=== PATIENT | female | born 1945 | race Caucasian/White ===

== ENCOUNTER 2022-07-11 04:31 | Inpatient (IN) | payer MEDICARE, SELFPAY ==
[2022-07-11] VITALS (14 sets, daily range): BP systolic 114–135; BP diastolic 57–77; PULSE 67–89; RESP 12–22; TEMP 36.1–36.7; O2SAT 92–100; BMI 40.7
--- NOTE | ~2022-07-11 | XR_ITS ---
EXAMINATION: XR retrograde pyelo w/stent RT DATE: 07/11/2022 14:40 INDICATION: Proximal right ureteral stone TECHNIQUE: 6 fluoroscopic images of the abdomen and pelvis were obtained during procedure performed b simeon Christopher. Radiologist was not present for the imaging or procedure. The amount of fluoroscopy t deonte used during this procedure was 0.3 minutes. COMPARISON: 07/11/2022 FINDINGS: Steam Hand images demonstrate a large heterotopic ossicle in the right lower quadrant more later al than would be expected in position for the right ureter. Cholecystectomy clips in right upper quad rant. Multiple additional surgical clips in the pelvis. Partially visualized left total hip arthropla sty. Lumbar dextrocurvature with severe spondylosis. Subsequent images demonstrate cannulation and re trograde contrast injection into the right ureter and renal collecting system. Lucent filling defect on the initial image at the right ureteropelvic junction which is not seen on the subsequent images w hich could represent either a gas bubble or renal stone subsequently either extracted or reflux into the renal pelvis/collecting system. A wire was then advanced into the right renal pelvis for placemen t of a right internal ureteral stent with loops formed in the right renal pelvis. IMPRESSION: 1. Lucent filling represent a stone or gas bubbles at the right ureteropelvic junction on the initial pyelographic image which is not appreciated on subsequent images. Correlate with operative note for further detail. 2. Right internal ureteral stent placement with proximal loop formed in the right renal pelvis. Reviewed, dictated and finalized at location B. D CARE LEAD TEACHER IMPRESSION: 1. Lucent filling represent a stone or gas bubbles at the right ureteropelvic j unction on the initial pyelographic image which is not appreciated on subsequen t images. Correlate with operative note for further detail. 2. Right internal ureteral stent placement with proximal loop formed in the rig ht renal pelvis.
--- NOTE | ~2022-07-11 | XR_ITS ---
EXAMINATION: XR abdomen/kub 1V DATE: 07/11/2022 10:29 INDICATION: Right proximal ureteral stone. TECHNIQUE: A supine view of the abdomen on 2 radiographs was obtained. COMPARISON: None. FINDINGS: There are no dilated loops of bowel. There are surgical clips in the abdomen and pelvis. Th ere is a total left hip arthroplasty. Calcifications in the pelvis may be vascular. A 12 mm rim-calci fied mass in right abdomen may be fat necrosis. There are two 2-mm calcifications to the right of the L2-L3 disc. A 2 mm calcification overlies right sacral ala. IMPRESSION: 1. 2 mm calcifications to the right of the L2-L3 disc and overlying the right sacral ala, which are i ndeterminate for ureteral stones. Comparison with CT is recommended. Reviewed, dictated and finalized at location A. NCIAL CENTER MANAGER IMPRESSION: 1. 2 mm calcifications to the right of the L2-L3 disc and overlying the right s acral ala, which are indeterminate for ureteral stones. Comparison with CT is r ecommended.
--- NOTE | 2022-07-11 03:38 | ADMGEN ---
This patient, Jina Saunders, was admitted to [facility] Room 325-02. Patient/family oriented to hospital policies and general routines including ID bracelet, bed and alarms, visiting hours, pain management, procedures, bathroom and other care routines, personal items, smoking policy, room service/diet, and visiting hours. Information on how to activate the Rapid Response Team has been discussed. Patient/Family are encouraged to report perceived risks to care and to ask questions if they do not understand what they are told or what they should do.
[2022-07-11] MEDS: HYDROmorphone HCL INJ (*CRX) 1 MG/ML SYR 0.5 MG IV PUSH ×2 (04:26→09:51)
--- NOTE | 2022-07-11 04:27 | PM.IMHP ---
H&P: HPI History of Present Illness Date/Time: 07/11/22 04:27 Chief Complaint: Right lateral abdomen pain Narrative: 77 years old lady with history of hypertension, hyperlipidemia, psychiatry disorders, present to ED of [facility] because of sudden onset abdominal pain. Patient started to have right lateral abdomen pain about 8:00 p.m. yesterday, radiating to back. Patient also has nausea denies vomiting diarrhea. Patient also denies dysuria, fever or chills. Patient denies chest pain, shortness of breath headache, focal weakness. In the ED, patient was found to have right ureteral kidney stone, mild hydronephrosis, elevated creatinine, leukocytosis Patient was afebrile, hemodynamically stable, urinalysis shows microscopic hematuria without pyuria. ER physician consulted urologist, urologist requested the transfer patients to [facility] for further management Review of Systems Review of Systems: All systems reviewed & are unremarkable except as noted in HPI and below PMFSH Social History Social History Smoking status: Former smoker Alcohol intake: former Substance use: never Lack of Transportation: No Lack of Food: Never True Current Housing: I Have Housing Concerned About Future Housing: No Difficulty Paying Gas/Electric Bills: No Difficulty Paying for Meds: No Currently Unemployed: No Education: High School Diploma/GED Difficulty w/ Childcare or Family Care: No Spiritual care concerns: No Meds Home Medications and Allergies Home Medications Medication Instructions Recorded Confirmed Type Glucosamine Chondroitin 1 tablet PO DAILY 07/11/22 07/11/22 History acetaminophen 325 mg tablet 650 mg PO Q4H PRN Pain (Scale 07/11/22 07/11/22 History (Tylenol) Score 1-3) atorvastatin 10 mg tablet 10 mg PO HS 07/11/22 07/11/22 History bupropion HCl 150 mg tablet,12 hr 150 mg PO BID 07/11/22 07/11/22 History sustained-release echinacea 250 mg capsule 750 mg PO DAILY 07/11/22 07/11/22 History furosemide 20 mg tablet 20 mg PO DAILY 07/11/22 07/11/22 History melatonin 5 mg tablet 5 mg PO HS PRN Insomnia 07/11/22 07/11/22 History meloxicam 15 mg tablet 15 mg PO DAILY 07/11/22 07/11/22 History metoprolol succinate 50 mg 50 mg PO DAILY 07/11/22 07/11/22 History tablet,extended release 24 hr multivitamin with minerals 1 tablet PO DAILY 07/11/22 07/11/22 History nortriptyline 10 mg capsule 30 mg PO HS 07/11/22 07/11/22 History ondansetron 4 mg disintegrating 4 mg PO Q6H 07/11/22 07/11/22 History tablet oxycodone 5 mg tablet 5 mg PO Q4H 07/11/22 07/11/22 History pantoprazole 40 mg tablet,delayed 40 mg PO DAILY 07/11/22 07/11/22 History release tamsulosin 0.4 mg capsule 0.4 mg PO DAILY 07/11/22 07/11/22 History vitamin A-vitamin C-vit E-min 1 tablet PO DAILY 07/11/22 07/11/22 History tablet Allergies Allergy/AdvReac Type Severity Reaction Status Date / Time Macrolide Antibiotics Allergy Intermediate Hives Verified 07/11/22 04:36 Sulfa (Sulfonamide AdvReac Intermediate Jittery Verified 07/11/22 04:33 Antibiotics) Penicillins AdvReac Mild Nausea and Verified 07/11/22 04:35 Vomiting neomycin AdvReac Rash Verified 07/11/22 04:34 Vital Signs Vital Signs - 24 hr 07/11/22 02:00 07/11/22 03:30 Temperature 97.2 F L Pulse Rate 89 Respiratory Rate 14 Blood Pressure 115/57 L Pulse Oximetry 97 Oxygen Delivery Room Air Exam Narrative: GENERAL: Pleasant, in no acute distress. Well-nourished. - EYES: EOMI. Anicteric. - HENT: Moist mucous membranes. - LUNGS: Clear to auscultation bilaterally, no wheezing, rhonchi, or rales. - CARDIOVASCULAR: Regular rate and rhythm. No murmur. No JVD. - ABDOMEN: Soft, right lateral abdomen tender and non-distended. No palpable masses. - EXTREMITIES: No edema. Peripheral pulses 2+. Non-tender. - NEUROLOGIC: No focal neurological deficits. CN II-XII grossly intact. - PSYCHIATRIC: Awake, Alert and oriented x 3.
[2022-07-11] MEDS: SODIUM CHLORIDE 0.9% IV 1,000 ML 125 ML IV CONT (06:14)
[2022-07-11 06:43] LABS: Anion Gap 3 mmol/L (8-16); Blood Urea Nitrogen 17 mg/dL (7-17); Calcium 9.4 mg/dL (8.4-10.2); Carbon Dioxide 28 mmol/L (22-30); Chloride 107 mmol/L (98-107); Estimated CRCL calculation 61 ml/min; Estimated Glomerular Filt Rate > 60; Glucose 103 mg/dL (65-110); Potassium 3.2 mmol/L (3.4-5.0); Sodium 138 mmol/L (137-145)
[2022-07-11 06:45] LABS: INR 1.2; Partial Thromboplastin Time 26.2 SECONDS (22.3-36.8); Prothrombin Time 14.7 Seconds (11.1-14.7)
--- NOTE | 2022-07-11 09:07 | WPDURCON ---
Assessment and Plan Assessment and plan (1) Obstruction of ureteropelvic junction (UPJ) due to stone: Code(s): N20.1 - Calculus of ureter Status: Acute Assessment and Plan: Obtain consent: Cystoscopy, right ureteroscopy with stent placement, right retrograde pyelogram. Keep NPO Plan to go to the OR today with Dr. Christopher. Urology Consult Note HPI Date Seen: 07/11/22 Time Seen: 09:07 Requesting Physician: Tino Delcid MD Primary Care Provider: Negro Ramirez, Consult Narrative Reason for consult: Right Ureteral Stone Narrative: Jina Saunders is a 77 year old female who presented to the ER in [place] at [facility] initially last night after acute onset of right flank pain and nausea. She denies dysuria, frequency, urgency, vomiting or hematuria. She has never had kidney stones prior to this episode, but was found to have a 4mm right UPJ stone on CT scan with perinephric fat stranding and moderate hydronephrosis as well as a right renal stone that is non obstructive. She is afebrile with a normal creatinine of 0.70. She was transferred early this morning to [place] for management of her stone d/t pain that was refractory to treatment in the ER. A KUB was done here and isn't able to visualize her stone. A urine culture was collected but her UA isn't significant for a UTI, as she doesn't exhibit symptoms of a UTI. Review of Systems Respiratory: Respiratory: Denies no additional respiratory complaints Gastrointestinal: Gastrointestinal: Denies abdominal pain, Reports nausea and Denies vomiting Genitourinary: Genitourinary: Denies hematuria, Denies nocturia, Denies dysuria, Reports flank pain, Denies urinary incontinence, Denies urinary hesitancy and Denies urinary urgency [facility] Family History Family History Mother Diabetes mellitus Stomach cancer Breast cancer Grandparent Colon cancer Sibling Lung cancer Multiple lesions on CT of brain and spine Diabetes mellitus Social History Social History Smoking status: Former smoker Alcohol intake: former Substance use: never Lack of Transportation: No Lack of Food: Never True Current Housing: I Have Housing Concerned About Future Housing: No Difficulty Paying Gas/Electric Bills: No Difficulty Paying for Meds: No Currently Unemployed: No Education: High School Diploma/GED Difficulty w/ Childcare or Family Care: No Spiritual care concerns: No Meds Home Medications and Allergies Home Medications Medication Instructions Recorded Confirmed Type Glucosamine Chondroitin 1 tablet PO DAILY 07/11/22 07/11/22 History acetaminophen 325 mg tablet 650 mg PO Q4H PRN Pain (Scale 07/11/22 07/11/22 History (Tylenol) Score 1-3) atorvastatin 10 mg tablet 10 mg PO HS 07/11/22 07/11/22 History bupropion HCl 150 mg tablet,12 hr 150 mg PO BID 07/11/22 07/11/22 History sustained-release echinacea 250 mg capsule 750 mg PO DAILY 07/11/22 07/11/22 History furosemide 20 mg tablet 20 mg PO DAILY 07/11/22 07/11/22 History melatonin 5 mg tablet 5 mg PO HS PRN Insomnia 07/11/22 07/11/22 History meloxicam 15 mg tablet 15 mg PO DAILY 07/11/22 07/11/22 History metoprolol succinate 50 mg 50 mg PO DAILY 07/11/22 07/11/22 History tablet,extended release 24 hr multivitamin with minerals 1 tablet PO DAILY 07/11/22 07/11/22 History nortriptyline 10 mg capsule 30 mg PO HS 07/11/22 07/11/22 History ondansetron 4 mg disintegrating 4 mg PO Q6H 07/11/22 07/11/22 History tablet oxycodone 5 mg tablet 5 mg PO Q4H 07/11/22 07/11/22 History pantoprazole 40 mg tablet,delayed 40 mg PO DAILY 07/11/22 07/11/22 History release tamsulosin 0.4 mg capsule 0.4 mg PO DAILY 07/11/22 07/11/22 History vitamin A-vitamin C-vit E-min 1 tablet PO DAILY 07/11/22 07/11/22 History tablet Allergies Allergy/AdvReac Type S
[2022-07-11 09:13] LABS: Appearance Urine Cloudy (Clear); Bilirubin Urine 1+ (Negative); Blood Urine 3+ (Negative); Color Urine Yellow (Yellow); Glucose Urine UA Negative (Negative); Ketones Urine 1+ mg/dL (Negative); Leukocyte Esterase Ur Negative LEU/UL (Negative); Nitrate Urine Negative (Negative); Protein Urine 1+ mg/dL (Negative); Specific Grav Ur >= 1.030 (1.001-1.035); Urobilinogen Urine 0.2 mg/dL (<2.0); pH Urine 5.5 (5.0-9.0)
[2022-07-11 09:25] LABS: Bacteria Urine Trace /hpf; Mucus Urine Few /lpf; RBC Urine >75 /hpf (0-2); Squamous Epithelial Cell Urine Few /hpf (Few); WBC Urine 21-30 /hpf
[2022-07-11 09:28] LABS: Add Urine Microscopic? YES
[2022-07-11] MEDS: buPROPion HCL SR (12 HR) 150 MG TAB PO ×2 (10:43→20:02)
[2022-07-11] MEDS: METOPROLOL SUCCINATE EXT REL 50 MG TABCR PO (10:43)
[2022-07-11] MEDS: ACETAMINOPHEN 325 MG TABLET 650 MG PO ×2 (10:43→20:01)
--- NOTE | 2022-07-11 10:46 | PC.NURSE ---
Morning medications held per OR nurse recommendations. OK to give wellbutrin, metoprolol and pain medications.
[2022-07-11] MEDS: ONDANSETRON INJ 4 MG/2 ML VIAL IV PUSH (11:24)
--- NOTE | 2022-07-11 12:50 | WPDHPUPDATE1 ---
History and Physical Update Update Date/Time: 07/11/22 12:50 History and Physical has been reviewed, including an updated exam of the patient. There are NO changes in the patient's condition. Risks, benefits, and alternatives have been discussed and questions answered. Patient agrees to proceed with procedure. Proceed with cysto, right retrograde, right stent , possible right ureteroscopy with laser.
--- NOTE | 2022-07-11 13:08 | WPDANESEPPF ---
Anes - Initial Pre Proc Eval Procedure: Operation Date: 07/11/22 14:00 Proposed Procedures p Cystoscopy, Right Retrograde Pyelogram, Right Stent Placement - Duke Christopher MD Date/Time: 07/11/22 13:08 Surgeon: Tino Delcid MD Pre Op Diagnosis: Obstructive uropathy Patient Data Age: 77 Gender: F Height: 1.52 m Weight: 94.7 kg Last Vital Signs Temp 97.2 F L 07/11/22 02:00 Pulse 81 07/11/22 10:43 Resp 14 07/11/22 02:00 BP 115/57 L 07/11/22 02:00 Pulse Ox 97 07/11/22 02:00 O2 Del Method Room Air 07/11/22 03:30 Allergies Allergy/AdvReac Type Severity Reaction Status Date / Time Macrolide Antibiotics Allergy Intermediate Hives Verified 07/11/22 04:36 Sulfa (Sulfonamide AdvReac Intermediate Jittery Verified 07/11/22 04:33 Antibiotics) Penicillins AdvReac Mild Nausea and Verified 07/11/22 04:35 Vomiting neomycin AdvReac Rash Verified 07/11/22 04:34 Home Medications Medication Instructions Recorded Confirmed Type Glucosamine Chondroitin 1 tablet PO DAILY 07/11/22 07/11/22 History acetaminophen 325 mg tablet 650 mg PO Q4H PRN Pain (Scale 07/11/22 07/11/22 History (Tylenol) Score 1-3) atorvastatin 10 mg tablet 10 mg PO HS 07/11/22 07/11/22 History bupropion HCl 150 mg tablet,12 hr 150 mg PO BID 07/11/22 07/11/22 History sustained-release echinacea 250 mg capsule 750 mg PO DAILY 07/11/22 07/11/22 History furosemide 20 mg tablet 20 mg PO DAILY 07/11/22 07/11/22 History melatonin 5 mg tablet 5 mg PO HS PRN Insomnia 07/11/22 07/11/22 History meloxicam 15 mg tablet 15 mg PO DAILY 07/11/22 07/11/22 History metoprolol succinate 50 mg 50 mg PO DAILY 07/11/22 07/11/22 History tablet,extended release 24 hr multivitamin with minerals 1 tablet PO DAILY 07/11/22 07/11/22 History nortriptyline 10 mg capsule 30 mg PO HS 07/11/22 07/11/22 History ondansetron 4 mg disintegrating 4 mg PO Q6H 07/11/22 07/11/22 History tablet oxycodone 5 mg tablet 5 mg PO Q4H 07/11/22 07/11/22 History pantoprazole 40 mg tablet,delayed 40 mg PO DAILY 07/11/22 07/11/22 History release tamsulosin 0.4 mg capsule 0.4 mg PO DAILY 07/11/22 07/11/22 History vitamin A-vitamin C-vit E-min 1 tablet PO DAILY 07/11/22 07/11/22 History tablet Laboratory Tests 07/11/22 07/11/22 07/11/22 06:16 06:16 08:55 PT 14.7 Seconds Seconds (11.1-14.7) INR 1.2 APTT 26.2 SECONDS SECONDS (22.3-36.8) Sodium 138 mmol/L mmol/L (137-145) Potassium 3.2 mmol/L L mmol/L (3.4-5.0) Chloride 107 mmol/L mmol/L (98-107) Carbon Dioxide 28 mmol/L mmol/L (22-30) Anion Gap 3 mmol/L L mmol/L (8-16) BUN 17 mg/dL mg/dL (7-17) Creatinine 0.70 mg/dL mg/dL (0.7-1.0) Estim Creat Clear Calc 61 ml/min ml/min Estimated GFR > 60 (59 - ) Glucose 103 mg/dL mg/dL (65-110) Calcium 9.4 mg/dL mg/dL (8.4-10.2) Urine Color Yellow (Yellow) Urine Appearance Cloudy H (Clear) Urine pH 5.5 (5.0-9.0) Ur Specific [place] >= 1.030 (1.001-1.035) Urine Protein 1+ mg/dL H mg/dL (Negative) Urine Glucose (UA) Negative mg/dL mg/dL (Negative) Urine Ketones 1+ mg/dL H mg/dL (Negative) Ur Blood (Man) 3+ H (Negative) Urine Nitrate Negative (Negative) Urine Bilirubin 1+ H (Negative) Urine Urobilinogen 0.2 mg/dL mg/dL (<2.0) Leukocyte Esterase Rfl Negative PARKER/UL PARKER/UL (Negative) Urine RBC >75 /hpf H /hpf (0-2) Urine WBC 21-30 /hpf H /hpf Ur Squamous Epith Cells Few /hpf /hpf (Few) Urine Bacteria Trace /hpf /hpf Urine Mucus Few /lpf H /lpf Patient hx anesthesia problems: none Family hx anesthesia problems: none Results Review: All pre-operative results and documents have been reviewed
[2022-07-11] MEDS: fentaNYL CITRATE INJ (*CRX) 100 MCG/2 ML VIAL 25 MCG IV PUSH ×2 (13:28→13:30)
[2022-07-11] MEDS: ceFAZolin 2 GM/D5W 50 ML 2 GM/50 ML BAG IVPB (13:51)
--- NOTE | 2022-07-11 14:37 | W.PM.PROC2 ---
Procedure Note - Detailed Date of Procedure 07/11/22 Pre-op Diagnosis Obstructive uropathy, right ureteral calculus Post-op Diagnosis Same Procedure Performed Cystoscopy, right retrograde pyelogram, right ureteroscopy with stone extraction of 2 renal calculi, right ureteral stent placement 4.8 Bahamian contour Surgeon Duke Christopher MD Anesthesia General Description of Procedure Patient is taken to the operative suite correctly identified. Once anesthesia was obtained she was placed in dorsal lithotomy position and prepped and draped usual sterile fashion. Nineteen Bahamian scope was inserted the bladder. She does have a cystocele disrupting the normal anatomy. Both ureteral orifices are visualized no tumors noted. We were able to cannulate the right ureteral orifice. We then placed an 810 dilator in. A rigid ureteral scope was then pursue formed to inspect the entire distal and proximal ureter. No stone was visualized. At this point I placed a ureteral access sheath in. Mini flexible ureteral scope was inserted. The UPJ stone had been flushed back into the kidney. Using escape basket we retrieved the stone sent for analysis. Reinspection revealed another stone and upper pole calyx. Using escape basket we were able to retrieved and sent for analysis. Pyelogram was then performed to confirm placement of the stent. 4.8 Bahamian contour stent was placed with proximal end coiled in the renal pelvis and the distal in the bladder. Bladder was drained. 2% viscous lidocaine was inserted urethra patient is taken recovery stable condition. From my standpoint she can be discharged home later today and follow up in a week for stent removal. Please send a copy this report to my office Estimated Blood Loss 0 Urine Output 10 Drains Yes Packing No Pathology Yes Complications No immediate complications Condition Stable Disposition PACU
[2022-07-11] MEDS: LACTATED RINGERS 1,000 ML 30 ML IV CONT (14:40)
--- NOTE | 2022-07-11 17:01 | PM.IMPN ---
Progress Note: A&P Assessment and Plan (1) Ureteral calculus of kidney transplant: Code(s): T86.19 - Other complication of kidney transplant; N20.1 - Calculus of ureter Status: Acute Assessment and Plan: status post cystoscopy with ureteral stone extraction and stent placement On tamsulosin Pain has resolved postprocedure Possible UTI however unable to determine. Await urine culture Recheck WBC count in a.m. (2) Hydronephrosis concurrent with and due to calculi of kidney and ureter: Code(s): N13.2 - Hydronephrosis with renal and ureteral calculous obstruction Status: Acute Assessment and Plan: Resulting from kidney stone (3) KARTHIK (acute kidney injury): Code(s): N17.9 - Acute kidney failure, unspecified Status: Acute Assessment and Plan: secondary to urinary obstruction Start normal saline IV 125 mL/hour Follow-up BMP (4) Hypertension: Code(s): I10 - Essential (primary) hypertension Status: Acute Assessment and Plan: Continue metoprolol p.o. (5) Hyperlipidemia: Code(s): E78.5 - Hyperlipidemia, unspecified Status: Acute Assessment and Plan: Continue Lipitor 10 mg daily p.o. Plan Full code Subjective Date/time seen: 07/11/22 17:01 Interval history: 77? years old lady with history of hypertension, hyperlipidemia, psychiatry disorders, present to ED of [facility] because of sudden onset abdominal pain.? Patient started to have right lateral abdomen pain about 8:00 p.m. yesterday, radiating to back.? Patient also has nausea denies vomiting diarrhea.? Patient also denies dysuria, fever or chills.? Patient denies chest pain, shortness of breath headache, focal weakness.? In the ED, patient was found to have right ureteral kidney stone, mild hydronephrosis, elevated creatinine, leukocytosis Patient was afebrile, hemodynamically stable, urinalysis shows microscopic hematuria without pyuria.? ER physician consulted urologist, urologist requested the transfer patients to [facility] for further? management 07/11/2022: seen after the procedure today. underwentCystoscopy with right ureteral stent placement and extraction of 2 renal calculi. Currently feeling much better with no pain. She had right meniscus tear about Jamila time which she she is going to see orthopedics stone Review of Systems Review of Systems: All systems reviewed & are unremarkable except as noted in HPI and below Exam Narrative: GENERAL: Pleasant, in no acute distress. Well-nourished. - EYES: EOMI. Anicteric. - HENT: Moist mucous membranes. - LUNGS: Clear to auscultation bilaterally, no wheezing, rhonchi, or rales. - CARDIOVASCULAR: Regular rate and rhythm. No murmur. No JVD. - ABDOMEN: Soft, nontender, non-distended. No palpable masses. - EXTREMITIES: No edema. Peripheral pulses 2+. Non-tender. - NEUROLOGIC: No focal neurological deficits. CN II-XII grossly intact. - PSYCHIATRIC: Awake, Alert and oriented x 3. Appropriate mood and affect. - SKIN: No rashes or lesions. Warm. - LYMPH: No cervical lymphadenopathy. Objective Data Vital Signs Vital Signs: Vital Signs - 24 hr 07/11/22 02:00 07/11/22 03:30 07/11/22 10:43 Temperature 97.2 F L Pulse Rate 89 81 Respiratory Rate 14 Blood Pressure 115/57 L Pulse Oximetry 97 Oxygen Delivery Room Air Oxygen Flow Rate 07/11/22 13:30 07/11/22 14:40 07/11/22 14:55 Temperature 97.6 F 97.1 F L Pulse Rate 77 67 76 Respiratory Rate 14 12 16 Blood Pressure 130/65 118/65 126/67 Pulse Oximetry 100 97 96 Oxygen Delivery Room Air Simple Face Mask Simple Face Mask Oxygen Flow Rate 6 6 07/11/22 15:04 07/11/22 15:10 07/11/22 15:25 Temperature Pulse Rate 75 78 Respiratory Rate 12 16 Blood Pressure 125/77 114/70 Pulse Oximetry 93 93 95 Oxygen Delivery Room Air Room Air Room Air Oxygen Flow Rate 07/11/22 15:40 Temperature Pulse Rate 75 Respirator
[2022-07-11] MEDS: ATORVASTATIN 10 MG TABLET PO (20:01)
[2022-07-11] MEDS: NORTRIPTYLINE HCL 10 MG CAPSULE 30 MG PO (20:02)
[2022-07-11] MEDS: MELATONIN 5 MG TABLET PO (20:02)
[2022-07-11] MEDS: HEPARIN SODIUM 5,000 UNITS/ML VIAL 5000 UNITS SUB-Q (20:02)
[2022-07-11] MEDS: oxyCODONE HCL (*CRX) 5 MG TAB IR PO (20:02)
[2022-07-11] MEDS: CYCLOBENZAPRINE HCL 5 MG TABLET PO (22:08)
[2022-07-12 06:48] LABS: Basophils Percent Auto 0.2 % (0.2-1.2); Eosinophils Percent Auto 0.1 % (0-4.4); Hematocrit 37.7 % (37.0-47.0); Hemoglobin 12.5 g/dL (12.0-15.0); Immature Granulocyte Absolute 0.08 K/mm3 (0.00-0.031); Immature Granulocyte Percent A 0.6 % (0-0.5); Lymphocytes Absolute Auto 2.31 K/mm3 (0.9-3.2); Lymphocytes Percent Auto 17.3 % (18.3-44.2); Mean Corpuscular HGB Conc 33.2 g/dl (32-36); Mean Corpuscular Hemoglobin 32.1 pg (26-34); Mean Corpuscular Volume 96.7 fl (80-100); Mean Platelet Volume 9.1 fl (7.4-10.4); Monocytes Absolute Auto 0.8 K/mm3 (0.1-0.6); Monocytes Percent Auto 5.7 % (2.6-8.5); Neutrophils Absolute Auto 10.2 K/mm3 (1.3-6.7); Neutrophils Percent Auto 76.1 % (45.5-73.1); Platelet Count Result 297 k/mm3 (150-375); Red Cell Distribution Width 12.7 % (11.5-14.5); White Blood Count 13.3 K/mm3 (4.5-10.0)
[2022-07-12 06:55] LABS: Alanine Aminotransferase 25 U/L (6-35); Albumin Level 3.4 g/dL (3.5-5.1); Alkaline Phosphatase 71 U/L (38-126); Anion Gap 4 mmol/L (8-16); Aspartate Amino Transferase 33 U/L (14-36); Bilirubin,Total 0.4 mg/dL (0.2-1.3); Blood Urea Nitrogen 15 mg/dL (7-17); Calcium 9.4 mg/dL (8.4-10.2); Carbon Dioxide 28 mmol/L (22-30); Chloride 104 mmol/L (98-107); Estimated CRCL calculation 70 ml/min; Estimated Glomerular Filt Rate > 60; Glucose 110 mg/dL (65-110); Potassium 3.3 mmol/L (3.4-5.0); Sodium 136 mmol/L (137-145)
[2022-07-12 07:55] VITALS: BP 150/87; PULSE 81; RESP 22; TEMP 36.5; O2SAT 98
[2022-07-12] MEDS: ACETAMINOPHEN 325 MG TABLET 650 MG PO (08:35)
[2022-07-12] MEDS: METOPROLOL SUCCINATE EXT REL 50 MG TABCR PO (08:36)
[2022-07-12] MEDS: TAMSULOSIN HCL 0.4 MG CAPSULE PO (08:36)
[2022-07-12] MEDS: HEPARIN SODIUM 5,000 UNITS/ML VIAL 5000 UNITS SUB-Q (08:36)
[2022-07-12] MEDS: buPROPion HCL SR (12 HR) 150 MG TAB PO (08:36)
[2022-07-12] MEDS: PANTOPRAZOLE 40 MG TABLET PO (08:37)
[2022-07-12] MEDS: MELOXICAM 7.5 MG TABLET 15 MG PO (08:37)
[2022-07-12] MEDS: FUROSEMIDE 20 MG TABLET PO (08:37)
--- NOTE | 2022-07-12 10:56 | WPDANESPN ---
Anes - Prog Note Post-Op Date/Time: 07/12/22 10:56 Cardiovascular status: normal Respiratory status: normal Airway patency: baseline Mental status: baseline Post-Op hydration status: normal Vital Signs: Last Vital Signs Temp 36.5 C 07/12/22 07:55 Pulse 81 07/12/22 07:55 Resp 22 H 07/12/22 07:55 BP 150/87 H 07/12/22 07:55 Pulse Ox 98 07/12/22 07:55 O2 Del Method Room Air 07/12/22 08:00 O2 Flow Rate 6 07/11/22 14:55 Pain Score (VAS): 07/27 I/O: Intake & Output 07/11/22 07/12/22 07/12/22 23:59 07:59 15:59 Intake Total 480 240 420 Output Total 600 600 Balance 480 -360 -180 Laboratory Tests 07/12/22 06:06 07/12/22 06:06 07/12/22 07/12/22 06:06 06:06 WBC 13.3 H RBC 3.90 L Hgb 12.5 Hct 37.7 MCV 96.7 MCH 32.1 MCHC 33.2 RDW 12.7 Plt Count 297 MPV 9.1 Immature Gran % (Auto) 0.6 H Neut % (Auto) 76.1 H Lymph % (Auto) 17.3 L Haakon % (Auto) 5.7 Eos % (Auto) 0.1 Baso % (Auto) 0.2 Lymph # (Auto) 2.31 Haakon # (Auto) 0.8 H Eos # (Auto) 0.0 Baso # (Auto) 0.0 Abs Immat Gran (auto) 0.08 H Absolute Neuts (auto) 10.2 H Absolute Nucleated RBC 0.0 Nucleated RBC % 0.0 Sodium 136 L Potassium 3.3 L Chloride 104 Carbon Dioxide 28 Anion Gap 4 L BUN 15 Creatinine 0.60 L Estim Creat Clear Calc 70 Estimated GFR > 60 Glucose 110 Calcium 9.4 Magnesium 2.0 Total Bilirubin 0.4 AST 33 ALT 25 Alkaline Phosphatase 71 Total Protein 6.0 L Albumin 3.4 L Post-procedural complaints: none Patient Feedback: Patient satisfied with anesthetic care.
--- NOTE | 2022-07-12 11:52 | PM.DS ---
DS: Admitting Diagnosis Discharge Date 07/12/2022 Admitting Diagnosis abdominal pain DS: Discharge Diagnosis Discharge Diagnosis (1) Ureteral calculus of kidney transplant: Code(s): T86.19 - Other complication of kidney transplant; N20.1 - Calculus of ureter Status: Acute (2) Hydronephrosis concurrent with and due to calculi of kidney and ureter: Code(s): N13.2 - Hydronephrosis with renal and ureteral calculous obstruction Status: Acute (3) KARTHIK (acute kidney injury): Code(s): N17.9 - Acute kidney failure, unspecified Status: Acute (4) Hypertension: Code(s): I10 - Essential (primary) hypertension Status: Acute (5) Hyperlipidemia: Code(s): E78.5 - Hyperlipidemia, unspecified Status: Acute DS: Summary Hospital Course Reason for hospitalization: 77? years old lady with history of hypertension, hyperlipidemia, psychiatry disorders, present to ED of [facility] because of sudden onset abdominal pain.? Patient started to have right lateral abdomen pain about 8:00 p.m. yesterday, radiating to back.? Patient also has nausea denies vomiting diarrhea.? Patient also denies dysuria, fever or chills.? Patient denies chest pain, shortness of breath headache, focal weakness.? In the ED, patient was found to have right ureteral kidney stone, mild hydronephrosis, elevated creatinine, leukocytosis Patient was afebrile, hemodynamically stable, urinalysis shows microscopic hematuria without pyuria.? ER physician consulted urologist, urologist requested the transfer patients to [facility] for further? management Hospital Course: # Right ureteeral calculus: with obstructive uropathy: ?status post cystoscopy with ureteral stone extraction and stent placement On tamsulosin Pain has resolved postprocedure Possible UTI however unable to determine.? Await urine culture, which was pending. wbc count still elevted. will give a 5 days course of cipro at dischage. fu with urology and pcp # Hydronephrosis concurrent with and due to calculi of kidney and ureter: Resulting from kidney stone # KARTHIK (acute kidney injury): ?secondary to urinary obstruction Start normal saline IV 125 mL/hour Follow-up with normal renal function # Hypertension: Continue metoprolol p.o. # Hyperlipidemia: Continue Lipitor 10 mg daily p.o. # Full code Time Spent with Patient Time attestation: Total time spent providing and/or coordinating discharge services:40 mins Exam Narrative: GENERAL: Pleasant, in no acute distress. Well-nourished. - EYES: EOMI. Anicteric. - HENT: Moist mucous membranes. - LUNGS: Clear to auscultation bilaterally, no wheezing, rhonchi, or rales. - CARDIOVASCULAR: Regular rate and rhythm. No murmur. No JVD. - ABDOMEN: Soft, nontender, non-distended. No palpable masses. - EXTREMITIES: No edema. Peripheral pulses 2+. Non-tender. - NEUROLOGIC: No focal neurological deficits. CN II-XII grossly intact. - PSYCHIATRIC: Awake, Alert and oriented x 3. Appropriate mood and affect. - SKIN: No rashes or lesions. Warm. - LYMPH: No cervical lymphadenopathy. DS: Data Data Completed and Pending Pending studies at discharge: Pending at discharge 07/11/22 14:29 Surgical [PTH] Routine Labs on day of discharge: Labs from last 24 hours 07/12/22 07/12/22 06:06 06:06 WBC 13.3 H RBC 3.90 L Hgb 12.5 Hct 37.7 MCV 96.7 MCH 32.1 MCHC 33.2 RDW 12.7 Plt Count 297 MPV 9.1 Immature Gran % (Auto) 0.6 H Neut % (Auto) 76.1 H Lymph % (Auto) 17.3 L Richardson % (Auto) 5.7 Eos % (Auto) 0.1 Baso % (Auto) 0.2 Lymph # (Auto) 2.31 Richardson # (Auto) 0.8 H Eos # (Auto) 0.0 Baso # (Auto) 0.0 Abs Immat Gran (auto) 0.08 H Absolute Neuts (auto) 10.2 H Absolute Nucleated RBC 0.0 Nucleated RBC % 0.0 Sodium 136 L Potassium 3.3 L Chloride 104 Carbon Dioxide 28 Anion Gap 4 L BUN 15 Creatinine 0.60 L Estim Creat Clear Calc
== END 2022-07-12 14:00 | disposition home or self-care (01) | DRG 660 ==
PROVIDERS: Urology; Admitting Provider Hospitalist; PCP Family Medicine; Visit Provider Internal Medicine
PROC: 0T768DZ Dilation of Right Ureter with Intraluminal Device, Via Natural or Artificial Opening Endoscopic (ICD-10-PCS; CPT 52352; principal; 2022-07-11 14:00)
DX: N13.6 Pyonephrosis (principal); Z68.41 Body mass index [BMI] 40.0-44.9, adult; E66.01 Morbid (severe) obesity due to excess calories; N17.9 Acute kidney failure, unspecified; I10 Essential (primary) hypertension; E78.5 Hyperlipidemia, unspecified; D72.829 Elevated white blood cell count, unspecified; Z87.891 Personal history of nicotine dependence
CPT/HCPCS: 36415; 74018; 74420; 80048; 80053; 81001; 82365; 83735; 85025; 85610; 85730; 87086; 87088; 88300; A9270; C1769; C1894; C2617; J0690; J1100; J1170; J1644; J2405; J2704; J3010; J7030; J7120